=== PATIENT | male | born 1965 | race Caucasian/White ===

== ENCOUNTER 2018-04-24 19:28 | Emergency (ER) | payer SELFPAY ==
[~2018-04-24] VITALS: Ht 170.2 cm; Wt 66.4 kg
[2018-04-24 19:36] VITALS: BP 122/73
[2018-04-24] MEDS ORDERED: LIDOCAINE HCL 5% TRANSDERMAL PATCH TD ONE (22:00)
[2018-04-24] MEDS ORDERED: METHOCARBAMOL 500 MG TABLET PO ONE (22:00)
[2018-04-24] MEDS ORDERED: IBUPROFEN 600 MG TABLET PO ONE (22:00)
== END 2018-04-24 23:13 | disposition home or self-care (01) ==
LOC: EMS 19:31
DX: M25.532 Pain in left wrist (principal); M54.2 Cervicalgia; R03.0 Elevated blood-pressure reading, without diagnosis of hypertension; V89.2XXA Person injured in unspecified motor-vehicle accident, traffic, initial encounter; Y93.89 Activity, other specified; Y92.410 Unspecified street and highway as the place of occurrence of the external cause; Y99.8 Other external cause status
CPT/HCPCS: 72040; 99284